=== PATIENT | male | born 1990 | race Caucasian/White ===

== ENCOUNTER 2016-06-08 18:03 | Emergency (ER) | payer BC ==
[~2016-06-08] VITALS: Ht 182.9 cm; Wt 91.6 kg
[2016-06-08] MEDS ORDERED: IV NS 0.9% 1,000 ML ONE (18:10)
[2016-06-08] MEDS ORDERED: IV SET PRIMARY PUMP SET 1 EA INFUS.SET MC ONE (18:10)
[2016-06-08] MEDS ORDERED: FAMOTIDINE/PF INJ 20 MG/2 ML VIAL IV ONE ×2 (18:15→18:30)
[2016-06-08] MEDS ORDERED: methylPREDNISolone SOD SUCC 125 MG/2ML VIAL ONE (18:15)
[2016-06-08] MEDS ORDERED: diphenhydrAMINE HCL 50 MG/ML VIAL ONE (18:15)
[2016-06-08] MEDS ORDERED: EPINEPHRINE (1:1000) MDV 30 MG/30ML VIAL ONE (18:15)
[2016-06-08] MEDS ORDERED: IV NS 0.9% 1,000 ML BAG IV ONE (18:30)
[2016-06-08] MEDS ORDERED: methylPREDNISolone SOD SUCC 125 MG/2ML VIAL IV ONE (18:30)
[2016-06-08] MEDS ORDERED: EPINEPHRINE (1:1000) MDV 30 MG/30ML VIAL SUBCUT ONE (18:30)
[2016-06-08] MEDS ORDERED: diphenhydrAMINE HCL 50 MG/ML VIAL IV ONE (18:30)
[2016-06-08 21:00] VITALS: BP 146/79
== END 2016-06-08 21:39 | disposition home or self-care (01) ==
LOC: ER 18:05
DX: T78.40XA Allergy, unspecified, initial encounter (principal); R55 Syncope and collapse; Z88.1 Allergy status to other antibiotic agents
CPT/HCPCS: 96361; 96372; 96374; 96375; 99284; A4606; J0171; J1200; J2930; J3490; J7030; Z7610